=== PATIENT | female | born 1960 | race Two or more races ===

== ENCOUNTER 2023-07-22 16:53 | Emergency (ER) | payer BC ==
[~2023-07-22] VITALS: Ht 160 cm; Wt 49.0 kg
[2023-07-22 17:30] VITALS: TEMP 98.4
[2023-07-22] MEDS ORDERED: IBUP-1957 PO (19:06)
[2023-07-22] MEDS ORDERED: ACET-2605 PO (19:06)
[2023-07-22 19:12] VITALS: BP 129/66; O2SAT 100
== END 2023-07-22 19:12 | disposition home or self-care (01) ==
LOC: ER 17:08
DX: S82.62XA Displaced fracture of lateral malleolus of left fibula, initial encounter for closed fracture (principal); X50.1XXA Overexertion from prolonged static or awkward postures, initial encounter; Y93.89 Activity, other specified; Y92.89 Other specified places as the place of occurrence of the external cause; Y99.8 Other external cause status
CPT/HCPCS: 73610-TC